=== PATIENT | female | born 1975 | race Caucasian/White ===

== ENCOUNTER 2018-10-30 10:11 | Day surgery (SDC) | payer BC, OTHER ==
[~2018-10-30 10:11] MED LIST: Lactated Ringers 1,000 ML IV SCH; Lidocaine 2% 5 ML SDV ONE; Propofol 200 MG/20 ML SDV ONE; Sodium Chloride 0.9% 10 ML SDV IV PRN; Sodium Chloride 0.9% 10 ML Syringe FLUSH PRN; Sodium Chloride 0.9% 2.5 ML Syringe FLUSH PRN
--- NOTE | 2018-10-30 11:16 | PCM.PREANE ---
Preanesthetic Assessment - Anesthesia/Transfusion/Family Hx Anesthesia History: Prior Anesthesia Without Reaction Other Type of Anesthesia Reaction Comment: Denies any known problem in past, some hx: motion sickness Family History of Anesthesia Reaction: No Transfusion History: No Prior Transfusion(s) Intubation History: Unknown - Review of Systems General: No Symptoms Pulmonary: No Symptoms Cardiovascular: No Symptoms Gastrointestinal: Abdominal Pain, Other (ejection fraction 0%- will get cholecystectomy on ) Neurological: No Symptoms Other: Reports: None - Physical Assessment NPO Status Date: 10/30/18 NPO Status Time: 06:00 O2 Sat by Pulse Oximetry: 97 Respiratory Rate: 18 Vital Signs: Last Vital Signs Temp 37.1 C 10/30/18 11:05 Pulse 92 10/30/18 11:05 Resp 18 10/30/18 11:05 BP 138/95 H 10/30/18 11:05 Pulse Ox 97 10/30/18 11:05 Height: 1.63 m Weight: 112.037 kg ASA Class: 2 Mental Status: Alert & Oriented x3 Airway Class: Mallampati = 2 Dentition: Reports: Normal Dentition Thyro-Mental Finger Breadths: 3 Mouth Opening Finger Breadths: 3 ROM/Head Extension: Full Lungs: Clear to Auscultation, Normal Respiratory Effort Cardiovascular: Regular Rate, Regular Rhythm - Allergies Allergies/Adverse Reactions: Allergies Allergy/AdvReac Type Severity Reaction Status Date / Time povidone-iodine Allergy "throat Verified 10/30/18 07:36 [From Betadine] swells" shellfish derived Allergy Difficulty Verified 10/30/18 07:36 Swallowing soap [From Betadine] Allergy "throat Verified 10/30/18 07:36 swells" - Blood Blood Available: No - Anesthesia Plan Pre-Op Medication Ordered: None - Acknowledgements Anesthesia Type Planned: MAC Pt an Appropriate Candidate for the Planned Anesthesia: Yes Alternatives and Risks of Anesthesia Discussed w Pt/Guardian: Yes Pt/Guardian Understands and Agrees with Anesthesia Plan: Yes PreAnesthesia Questionnaire HEENT History: Reports: Other (See Below) Other HEENT History: wears glasses Cardiovascular History: Reports: None Respiratory History: Reports: None Gastrointestinal History: Reports: Other (See Below) Other Gastrointestinal History: intermittent RUQ pain Genitourinary History: Reports: None [employer] History: Reports: Musculoskeletal History: Reports: Arthritis Other Musculoskeletal History: CMC arthritis Neurological History: Reports: Migraines Psychiatric History: Reports: None Endocrine/Metabolic History: Reports: Obesity/BMI 30+ (BMI 42.4) Hematologic History: Reports: B12 Deficiency Immunologic History: Reports: None Oncologic (Cancer) History: Reports: Basal Cell Carcinoma, Other (See Below) Other Oncologic History: Exicision of skin cancer lesions Dermatologic History: Reports: None - Infectious Disease History Infectious Disease History: Reports: None - Past Surgical History Head Surgeries/Procedures: Reports: None HEENT Surgical History: Reports: Tonsillectomy Respiratory Surgical History: Reports: None GI Surgical History: Reports: Colonoscopy Female Surgical History: Reports: Section (x2), Dilitation & Evacuation, Endometrial Ablation, Hysterectomy Other Female Surgeries/Procedures: x 2, Essure procedure, ' Endometrial Thermal Ablation, hysterectomy Endocrine Surgical History: Reports: None Neurological Surgical History: Reports: None Other Musculoskeletal Surgeries/Procedures:: rt thumb surgery ( right CMC joint fusion ) Oncologic Surgical History: Reports: None Dermatological Surgical History: Reports: Skin Biopsy - SUBSTANCE USE Smoking Status *Q: Never Smoker Recreational Drug Use History: No - HOME MEDS Home Medications: Home Meds Cyanocobalamin (Vitamin B-12) [Cyanocobalamin Injection] 1 injection INJECT ASDIRECTED 05/02/15 [History] ZOLMitriptan [Zolmitriptan] 1 tab PO ASDIRECTED PRN 05/02/15 [History] - CURRENT (IN HOUSE) MEDS Current Meds: Current Medications Lactated Ringer's (Ringers, Lactated) 1,000 mls @ 125 mls/hr IV ASDIRECTED [facility] Last Admin: 10/30/18 11:00 Dose: 125 mls/hr Sodium Chloride (Saline Flush) 10 ml FLUSH ASDIRECTED PRN PRN Reason: Keep Vein Open Sodium Chloride (Saline Flush) 2.5 ml FLUSH ASDIRECTED PRN PRN Reason: Keep Vein Open Sodium Chloride (Saline Flush) 10 ml FLUSH ASDIRECTED PRN PRN Reason: Keep Vein Open Sodium Chloride (Saline Flush) 2.5 ml FLUSH ASDIRECTED PRN PRN Reason: Keep Vein Open Sodium Chloride (Normal Saline) 10 ml IV ASDIRECTED PRN PRN Reason: IV Use Discontinued Medications Lidocaine (Xylocaine-Mpf 2%) Confirm Administered Dose 5 ml .ROUTE .STK-MED ONE Stop: 10/30/18 08:29 Propofol (Diprivan 20 Ml) Confirm Administered Dose 400 mg .ROUTE .STK-MED ONE Stop: 10/30/18 08:29
[2018-10-30] MEDS ORDERED: Propofol 200 MG/20 ML SDV ONE (12:40)
--- NOTE | 2018-10-30 12:58 | PCM.OPNOTE ---
- General Post-Op/Procedure Note Date of Surgery/Procedure: 10/30/18 Operative Procedure(s): Colonoscopy Findings: 1 descending colon polyp, sigmoid colon polyp x 2 Pre Op Diagnosis: Change in bowel habits Post-Op Diagnosis: Sigmoid colon polyp x 2, descending colon polyp Anesthesia Technique: MAC Primary Surgeon: Rita Sy Condition: Good
[2018-10-30 13:10] VITALS: BP 169/90
--- NOTE | 2018-10-30 13:26 | PCM.POSTAN ---
POST ANESTHESIA ASSESSMENT - MENTAL STATUS Mental Status: Alert, Oriented - RESPIRATORY Respiratory Status: Respiratory Rate WNL, Airway Patent, O2 Saturation Stable - CARDIOVASCULAR CV Status: Pulse Rate WNL, Blood Pressure Stable - GASTROINTESTINAL GI Status: No Symptoms - PAIN Pain Score: 0 - POST OP HYDRATION Hydration Status: Adequate & Stable - OBSERVATIONS Free Text/Narrative:: No anesthesia problems, patient skipper drecovery room stage of postoperative care.
--- NOTE | 2018-10-30 19:48 | OR ---
SURGEON: BERNARDA MOORE MD DATE OF PROCEDURE: 10/30/2018 PREOPERATIVE DIAGNOSIS: Change in bowel habits. POSTOPERATIVE DIAGNOSES: 1. Descending colon polyps x1. 2. Sigmoid colon polyps x2. PROCEDURE PERFORMED: Diagnostic colonoscopy with biopsy. ANESTHESIA: MAC. INSTRUMENT USED: Olympus colonoscope. EXTENT OF EXAM: To the cecum. PREPARATION: Good. LIMITATIONS: None. INDICATION FOR EXAMINATION: The patient is a 43-year-old female who presents with changes in her bowel habits. She has never had a colonoscopy. I explained the need for diagnostic colonoscopy. I discussed the procedure, expected perioperative course, and risks including bleeding, infection, or damage to surrounding structures including perforation. The patient verbalized understanding and wishes to proceed. PROCEDURE IN DETAIL: The patient was brought to the endoscopy suite and placed in the left lateral decubitus position. A time-out was completed verifying the patient's name, age, date of , allergies, and procedure to be performed. Monitored anesthesia care was induced and continuous oxygen was provided via nasal cannula throughout the procedure. After adequate sedation was achieved, a digital rectal exam was performed. This exam was within normal limits. A well-lubricated colonoscope was inserted in the rectum and advanced under direct visualization to the level of the cecum. The cecum was identified by both visual and anatomic landmarks. A photograph was taken of the cecal cap; however, due to looping of the scope more proximally due to a very redundant colon, I was unable to retroflex the scope within the cecum. The scope was then straightened out and fully withdrawn while examining the color, texture, anatomy, and integrity of the mucosa from the cecum to the anal canal. The patient had one sessile polyp in the very proximal descending colon. This was removed in piecemeal fashion using a cold biopsy forceps. In the distal sigmoid colon, she had two small sessile polyps as well. These were removed in a similar fashion. The scope was brought into the rectum and retroflexed to allow visualization of the anal canal opening. This appeared normal and a photograph was taken. The scope was then straightened out and fully withdrawn. The cecum to anus time was 19 minutes. The patient tolerated the procedure well and was transferred to the PACU in stable condition. ENDOSCOPIC DIAGNOSES: 1. Descending colon polyps x1. 2. Sigmoid colon polyps x2. RECOMMENDATIONS: Follow up in clinic in 2 weeks. CAROL SIMMONS /[id number]
== END 2018-10-30 13:35 | disposition home or self-care (01) ==
LOC: MW.SDS 10:11
PROVIDERS: ATTEND Surgery
DX: D12.4 Benign neoplasm of descending colon (principal); K63.5 Polyp of colon; K63.89 Other specified diseases of intestine; K82.8 Other specified diseases of gallbladder; E53.8 Deficiency of other specified B group vitamins; D53.9 Nutritional anemia, unspecified; G43.909 Migraine, unspecified, not intractable, without status migrainosus; M18.11 Unilateral primary osteoarthritis of first carpometacarpal joint, right hand; Z88.3 Allergy status to other anti-infective agents; Z91.013 Allergy to seafood; Z91.048 Other nonmedicinal substance allergy status; Z79.899 Other long term (current) drug therapy
CPT/HCPCS: 45380; J2001; J2704; J7120; 88305

== ENCOUNTER 2018-11-02 07:14 | Day surgery (SDC) | payer BC, OTHER ==
[~2018-11-02 07:14] MED LIST changes: -Lidocaine 2% 5 ML SDV ONE; -Propofol 200 MG/20 ML SDV ONE; +ceFAZolin 2 GM in Premix Bag 1 BAG IV ONE
[2018-11-02] MEDS ORDERED: Propofol 200 MG/20 ML SDV ONE (07:15)
[2018-11-02] MEDS ORDERED: fentaNYL 250 MCG/5 ML SDV ONE (07:15)
[2018-11-02] MEDS ORDERED: Midazolam 1 MG/ML 2 ML SDV ONE (07:15)
[2018-11-02] MEDS ORDERED: Ondansetron 4 MG/2 ML SDV ONE (07:16)
[2018-11-02] MEDS ORDERED: Dexamethasone 4 MG/ML 5 ML MDV ONE (07:16)
[2018-11-02] MEDS ORDERED: ceFAZolin/Dextrose,Iso-Osmotic 2 GM/50 ML Duplex Bag IV ONE (07:18)
[2018-11-02] MEDS ORDERED: Neostigmine Methylsulfate 1 MG/ML 5 ML Syringe ONE (07:22)
[2018-11-02] MEDS ORDERED: Rocuronium 100 MG/10 ML Syringe ONE (07:22)
[2018-11-02] MEDS ORDERED: Glycopyrrolate 0.2 MG/ML SDV ONE ×2 (07:22→07:23)
--- NOTE | 2018-11-02 07:32 | PCM.PREANE ---
Preanesthetic Assessment - Anesthesia/Transfusion/Family Hx Anesthesia History: Prior Anesthesia Without Reaction Other Type of Anesthesia Reaction Comment: Denies any known problem in past, some hx: motion sickness Family History of Anesthesia Reaction: No Transfusion History: No Prior Transfusion(s) Intubation History: Unknown - Review of Systems General: No Symptoms Pulmonary: No Symptoms Cardiovascular: No Symptoms Gastrointestinal: No Symptoms Neurological: No Symptoms Other: Reports: None - Physical Assessment Height: 1.63 m Weight: 112.037 kg ASA Class: 2 Mental Status: Alert & Oriented x3 Airway Class: Mallampati = 2 Dentition: Reports: Normal Dentition Thyro-Mental Finger Breadths: 3 Mouth Opening Finger Breadths: 3 ROM/Head Extension: Full Lungs: Clear to Auscultation, Normal Respiratory Effort Cardiovascular: Regular Rate, Regular Rhythm - Allergies Allergies/Adverse Reactions: Allergies Allergy/AdvReac Type Severity Reaction Status Date / Time povidone-iodine Allergy "throat Verified 10/30/18 07:36 [From Betadine] swells" shellfish derived Allergy Difficulty Verified 10/30/18 07:36 Swallowing soap [From Betadine] Allergy "throat Verified 10/30/18 07:36 swells" - Blood Blood Available: No - Anesthesia Plan Pre-Op Medication Ordered: None - Acknowledgements Anesthesia Type Planned: General Anesthesia Pt an Appropriate Candidate for the Planned Anesthesia: Yes Alternatives and Risks of Anesthesia Discussed w Pt/Guardian: Yes Pt/Guardian Understands and Agrees with Anesthesia Plan: Yes PreAnesthesia Questionnaire HEENT History: Reports: Other (See Below) Other HEENT History: wears glasses Cardiovascular History: Reports: None Respiratory History: Reports: None Gastrointestinal History: Reports: Other (See Below) (cholecystitis) Other Gastrointestinal History: intermittent RUQ pain Genitourinary History: Reports: None [employer] History: Reports: Musculoskeletal History: Reports: Arthritis Other Musculoskeletal History: CMC arthritis Neurological History: Reports: Migraines Psychiatric History: Reports: None Endocrine/Metabolic History: Reports: Obesity/BMI 30+ (BMI 42.4) Hematologic History: Reports: B12 Deficiency Immunologic History: Reports: None Oncologic (Cancer) History: Reports: Basal Cell Carcinoma, Other (See Below) Other Oncologic History: Exicision of skin cancer lesions Dermatologic History: Reports: None - Infectious Disease History Infectious Disease History: Reports: None - Past Surgical History Head Surgeries/Procedures: Reports: None HEENT Surgical History: Reports: Tonsillectomy Respiratory Surgical History: Reports: None GI Surgical History: Reports: Colonoscopy Female Surgical History: Reports: Section (x2), Dilitation & Evacuation, Endometrial Ablation, Hysterectomy Other Female Surgeries/Procedures: x 2, Essure procedure, ' Endometrial Thermal Ablation, hysterectomy Endocrine Surgical History: Reports: None Neurological Surgical History: Reports: None Other Musculoskeletal Surgeries/Procedures:: rt thumb surgery ( right CMC joint fusion ) Oncologic Surgical History: Reports: None Dermatological Surgical History: Reports: Skin Biopsy - SUBSTANCE USE Smoking Status *Q: Never Smoker Recreational Drug Use History: No - HOME MEDS Home Medications: Home Meds Cyanocobalamin (Vitamin B-12) [Cyanocobalamin Injection] 1 injection INJECT ASDIRECTED 05/02/15 [History] ZOLMitriptan [Zolmitriptan] 1 tab PO ASDIRECTED PRN 05/02/15 [History] - CURRENT (IN HOUSE) MEDS Current Meds: Current Medications Lactated Ringer's (Ringers, Lactated) 1,000 mls @ 125 mls/hr IV ASDIRECTED KP Sodium Chloride (Saline Flush) 10 ml FLUSH ASDIRECTED PRN PRN Reason: Keep Vein Open Sodium Chloride (Saline Flush) 2.5 ml FLUSH ASDIRECTED PRN PRN Reason: Keep Vein Open Sodium Chloride (Normal Saline) 10 ml IV ASDIRECTED PRN PRN Reason: IV Use Discontinued Medications Cefazolin Sodium/Dextrose (Ancef) Confirm Administered Dose 2 gm IV .STK-MED ONE Stop: 11/02/18 07:19 Dexamethasone (Dexamethasone) Confirm Administered Dose 20 mg .ROUTE .STK-MED ONE Stop: 11/02/18 07:17 Fentanyl (Sublimaze) Confirm Administered Dose 250 mcg .ROUTE .STK-MED ONE Stop: 11/02/18 07:16 Glycopyrrolate (Robinul) Confirm Administered Dose 0.6 mg .ROUTE .STK-MED ONE Stop: 11/02/18 07:23 Glycopyrrolate (Robinul) Confirm Administered Dose 0.2 mg .ROUTE .STK-MED ONE Stop: 11/02/18 07:24 Cefazolin Sodium/Dextrose 2 gm (/ Premix) 50 mls @ 100 mls/hr IV ONETIME ONE Stop: 11/01/18 13:40 Lidocaine HCl (Xylocaine-Mpf 1%) Confirm Administered Dose 5 mls @ as directed .ROUTE .STK-MED ONE Stop: 11/02/18 07:17 Acetaminophen (Ofirmev) Confirm Administered Dose 100 mls @ as directed IV .STK- MED ONE Stop: 11/02/18 07:22 Midazolam HCl (Versed 1 Mg/Ml) Confirm Administered Dose 2 mg .ROUTE .STK-MED ONE Stop: 11/02/18 07:16 Neostigmine Methylsulfate (Neostigmine) Confirm Administered Dose 5 mg .ROUTE .STK-MED ONE Stop: 11/02/18 07:23 Ondansetron HCl (Zofran) Confirm Administered Dose 4 mg .ROUTE .STK-MED ONE Stop: 11/02/18 07:17 Propofol (Diprivan 20 Ml) Confirm Administered Dose 200 mg .ROUTE .STK-MED ONE Stop: 11/02/18 07:16 Rocuronium Mclean (Zemuron) Confirm Administered Dose 100 mg .ROUTE .STK-MED ONE Stop: 11/02/18 07:23 Succinylcholine Chloride (Succinylcholine Chloride) Confirm Administered Dose 200 mg .ROUTE .STK-MED ONE Stop: 11/02/18 07:23
[2018-11-02] MEDS ORDERED: Bupivacaine 0.5% 30 ML SDV ONE (07:33)
[2018-11-02] MEDS ORDERED: Ketorolac 30 MG/ML SDV ONE (09:09)
[2018-11-02] MEDS ORDERED: fentaNYL 100 MCG/2 ML SDV IVPUSH PRN (09:16)
[2018-11-02] MEDS ORDERED: HYDROmorphone 2 MG/ML Syringe ONE (09:43)
[2018-11-02] MEDS ORDERED: Sodium Chloride 0.9% 20 ML ONE (09:43)
[2018-11-02] MEDS ORDERED: fentaNYL 100 MCG/2 ML SDV ONE (10:32)
--- NOTE | 2018-11-02 10:34 | PCM.OPNOTE ---
<Bang Ferguson - Last Filed: 11/02/18 10:30> - General Post-Op/Procedure Note Date of Surgery/Procedure: 11/02/18 Operative Procedure(s): Laparoscopic Cholecystectomy Findings: Pt was noted to have a enlarged Liver secondary to Fatty Liver Disease Pre Op Diagnosis: Biliary Dyskinesia Post-Op Diagnosis: Biliary Dyskinesia Primary Surgeon: Rita Sy Secondary Surgeon: Bang Ferguson Fluid Replacement, Intraop: 1,500 Output, Urine Amount: 500 EBL in mLs: 50 Complications: Small Capsular tear of liver with bleeding well controlled Condition: Good <Rita Sy - Last Filed: 11/02/18 10:35> - General Post-Op/Procedure Note Anesthesia Technique: General ET Tube Output, Urine Amount: 300 Free Text/Narrative:: Intake & Output 11/01/18 11/02/18 11/02/18 22:59 06:59 14:59 Intake Total 1500 Output Total 500 Balance 1000
[2018-11-02] MEDS ORDERED: HYDROmorphone 2 MG/ML SDV IVPUSH PRN (10:38)
[2018-11-02] MEDS ORDERED: Ondansetron 4 MG/2 ML SDV IVPUSH PRN (10:38)
[2018-11-02] MEDS ORDERED: diphenhydrAMINE 50 MG/ML SDV IVPUSH PRN (10:38)
[2018-11-02] MEDS: fentaNYL 100 MCG/2 ML SDV IVPUSH PRN ×2 (13:26→14:12)
[2018-11-02] MEDS: Acetaminophen/HYDROcodone 325-5 MG Tab PO PRN ×2 (13:30→20:53)
--- NOTE | 2018-11-02 15:18 | OR ---
SURGEON: RITA MOORE MD DATE OF PROCEDURE: 11/02/2018 PREOPERATIVE DIAGNOSIS: Biliary dyskinesia. POSTOPERATIVE DIAGNOSIS: Biliary dyskinesia. PROCEDURE PERFORMED: Laparoscopic cholecystectomy. PRIMARY SURGEON: Rita Moore MD. CONTACT CENTER DIRECTOR: physical therapist assistant: Dr. Bang Ferguson, Encoding Clerk. FLUIDS: 1500 mL of crystalloid. ESTIMATED BLOOD LOSS: 50 mL. URINE OUTPUT: 300 mL. FINDINGS: Fatty liver. Distended gallbladder with no signs of acute inflammation. COMPLICATIONS: Capsular tear of the liver. INDICATIONS: The patient is a 43-year-old female, who presented to the office with biliary dyskinesia. I explained the need for a cholecystectomy. I explained both the laparoscopic and open approaches. I will attempt it laparoscopically, but should I be unable to perform it safely, I will convert to open. We discussed the expected perioperative course as well as the risks including bleeding, infection, or damage to surrounding structures. The patient verbalized understanding and wishes to proceed. PROCEDURE IN DETAIL: The patient was brought into the OR and placed on the OR table in supine position. A time-out was completed verifying the patient's name, age, date of , allergies, and procedure to be performed. General endotracheal anesthesia was induced. The left arm was tucked to the patient's side and a Rivera catheter placed. The abdomen was prepped and draped in usual sterile fashion. I anesthetized the area over the supraumbilical midline with 0.5% Marcaine plain. An 11 blade was used to make a 2 cm incision over this area. Cautery was used to dissect down to the subcutaneous fat. S retractors were used to bluntly dissect down to the level of the fascia. The fascia was elevated with Jeane's and incised sharply with the Metzenbaum scissors. The peritoneum was identified and elevated with hemostats. It was sharply incised with the Metzenbaum scissors. Entry into the abdomen was palpated. A 12 mm Manju trocar was inserted into the abdomen and the abdomen insufflated. A 5 mm 30 degree scope was inserted and I inspected the area underneath my initial trocar placement. No damage to surrounding structures was noted. The patient was placed into reverse Trendelenburg position and airplaned slightly to the left. 5 mm trocars were placed in the following locations under direct visualization; one in the epigastric area, one in the right flank, and one 3 fingerbreadths below the right subcostal margin in the midclavicular line. The liver appeared enlarged and had fatty infiltration. The dome of the gallbladder was grasped and elevated cranially. When doing this, a tear was made along the liver involving a small amount of the parenchyma right next to the falciform ligament. Electrocautery was used to achieve hemostasis. The wound was then packed with Surgicel. Once hemostasis was achieved, I continued the case. The gallbladder was gently elevated and mobilized medially to decrease the amount of tension on the capsular tear. I then identified the infundibulum. It was grasped with an atraumatic grasper. The gallbladder itself appeared distended and slightly intrahepatic. I started my dissection along the medial and lateral edges of the body of the gallbladder to mobilize it and allow better visualization of my infundibulum. This was performed using hook cautery. Once I had mobilized medially and laterally, I was then able to manipulate the infundibulum more easily to allow for safer dissection. Using a combination of blunt dissection and hook cautery, I was able to take down the peritoneal attachments around the infundibulum. I cleared away the cystic duct and artery and achieved my critical view. A photograph was taken. I then doubly clipped and ligated my cystic duct and artery. Electrocautery was used to remove the gallbladder from its attachments to the gallbladder fossa. The gallbladder was then placed in an EndoCatch bag and removed through the supraumbilical port site. The 12 mm Manju trocar was placed back in the abdomen. I inspected my operative field. It appeared to be hemostatic. I turned my attention back to the liver tear. There was a small amount of oozing, so endoscopic Avitene and another piece of Surgicel was placed on top. I monitored the area closely and no further bleeding was noted. The Surgicel remained dry. A photograph of this area was taken. I suctioned any remaining blood out of the abdomen. Once I had ensured that there was hemostasis, I removed my 5 mm trocars under direct visualization and allowed the abdomen to desufflate. The 12 mm Manju trocar was removed as well. I then closed the fascia at the supraumbilical port site with interrupted 0 Vicryl sutures. The subcutaneous fat layer was closed with interrupted 3-0 Vicryl sutures. The skin was closed with a running 4-0 Monocryl stitch. The 5 mm trocar sites were closed with interrupted 4-0 Monocryl sutures. Steri-Strips and sterile dressings were applied. The patient tolerated the procedure well and was transferred to the PACU in stable condition. CAROL SIMMONS /[id number]
[2018-11-02] MEDS ORDERED: HYDROmorphone 1 MG/ML Syringe IVPUSH PRN (15:47)
[2018-11-03] MEDS: Acetaminophen/HYDROcodone 325-5 MG Tab PO PRN ×2 (02:15→08:20)
[2018-11-03 08:09] VITALS: BP 134/86
[2018-11-03] MEDS ORDERED: Bisacodyl 5 MG Tab PO SCH (09:00)
--- NOTE | 2018-11-03 09:33 | PCM.SURGPN ---
- General Info Date of Service: 11/03/18 Date of Surgery/Procedure: 11/02/18 POD#: 1 Functional Status: Reports: Pain Controlled, Tolerating Diet, Ambulating, Urinating, Other (nauseated) - Review of Systems General: Reports: No Symptoms HEENT: Reports: No Symptoms Pulmonary: Reports: No Symptoms Cardiovascular: Reports: No Symptoms Gastrointestinal: Reports: Nausea - Patient Data Vitals - Most Recent: Last Vital Signs Temp 36.7 C 11/03/18 08:00 Pulse 82 11/03/18 08:00 Resp 17 11/03/18 08:00 BP 134/86 11/03/18 08:00 Pulse Ox 95 11/03/18 08:00 Weight - Most Recent: 112.037 kg I&O - Last 24 Hours: Intake & Output 11/02/18 11/03/18 11/03/18 22:59 06:59 14:59 Intake Total 100 1350 Output Total 300 1450 Balance -200 -100 Lab Results Last 24 Hrs: Laboratory Results - last 24 hr 11/03/18 11/03/18 Range/Units 08:10 08:10 Hgb 13.9 (12.0-16.0) g/dL Sodium 138 (136-145) mmol/L Potassium 4.2 (3.5-5.1) mmol/L Chloride 101 (98-107) mmol/L Carbon Dioxide 28.2 (21.0-32.0) mmol/L BUN 13 (7.0-18.0) mg/dL Creatinine 1.0 (0.6-1.0) mg/dL Est Cr Clr Drug Dosing 61.35 mL/min Estimated GFR (MDRD) 60.0 ml/min Glucose 105 (74-106) mg/dL Calcium 9.6 (8.5-10.1) mg/dL Total Bilirubin 0.4 (0.2-1.0) mg/dL AST 33 (15-37) IU/L ALT 44 (14-63) IU/L Alkaline Phosphatase 109 (46-116) U/L Total Protein 7.3 (6.4-8.2) g/dL Albumin 3.6 (3.4-5.0) g/dL Globulin 3.7 (2.6-4.0) g/dL Albumin/Globulin Ratio 1.0 (0.9-1.6) Med Orders - Current: Current Medications Hydrocodone Bitart/Acetaminophen ([place] 325-5 Mg) 2 tab PO Q4H PRN PRN Reason: Pain (moderate 4-6) Last Admin: 11/03/18 08:20 Dose: 2 tab Bisacodyl (Dulcolax) 5 mg PO DAILY KP Last Admin: 11/03/18 08:20 Dose: 5 mg Diphenhydramine HCl (Benadryl) 25 mg IVPUSH Q4H PRN PRN Reason: Itching Fentanyl (Sublimaze) 50 - 100 mcg IVPUSH Q5M PRN PRN Reason: Pain (severe 7-10) Last Admin: 11/02/18 14:12 Dose: 50 mcg Hydromorphone HCl (Dilaudid) 0.5 mg IVPUSH Q1H PRN PRN Reason: Pain (severe 7-10) Last Admin: 11/02/18 16:02 Dose: 0.5 mg Ondansetron HCl (Zofran) 4 mg IVPUSH Q6H PRN PRN Reason: Nausea/Vomiting Last Admin: 11/02/18 17:26 Dose: 4 mg Sodium Chloride (Saline Flush) 10 ml FLUSH ASDIRECTED PRN PRN Reason: Keep Vein Open Sodium Chloride (Saline Flush) 2.5 ml FLUSH ASDIRECTED PRN PRN Reason: Keep Vein Open Sodium Chloride (Normal Saline) 10 ml IV ASDIRECTED PRN PRN Reason: IV Use Discontinued Medications Bupivacaine HCl (Marcaine 0.5%) Confirm Administered Dose 30 ml .ROUTE .STK-MED ONE Stop: 11/02/18 07:34 Cefazolin Sodium/Dextrose (Ancef) Confirm Administered Dose 2 gm IV .STK-MED ONE Stop: 11/02/18 07:19 Dexamethasone (Dexamethasone) Confirm Administered Dose 20 mg .ROUTE .STK-MED ONE Stop: 11/02/18 07:17 Fentanyl (Sublimaze) Confirm Administered Dose 250 mcg .ROUTE .STK-MED ONE Stop: 11/02/18 07:16 Fentanyl (Sublimaze) 50 mcg IVPUSH Q5M PRN PRN Reason: Pain (severe 7-10) Stop: 11/02/18 12:00 Fentanyl (Sublimaze) Confirm Administered Dose 100 mcg .ROUTE .STK-MED ONE Stop: 11/02/18 10:33 Glycopyrrolate (Robinul) Confirm Administered Dose 0.6 mg .ROUTE .STK-MED ONE Stop: 11/02/18 07:23 Glycopyrrolate (Robinul) Confirm Administered Dose 0.2 mg .ROUTE .STK-MED ONE Stop: 11/02/18 07:24 Hydromorphone HCl (Dilaudid) Confirm Administered Dose 2 mg .ROUTE .STK-MED ONE Stop: 11/02/18 09:44 Hydromorphone HCl (Dilaudid) 0.5 mg IVPUSH Q1H PRN PRN Reason: Pain (severe 7-10) Cefazolin Sodium/Dextrose 2 gm (/ Premix) 50 mls @ 100 mls/hr IV ONETIME ONE Stop: 11/01/18 13:40 Last Admin: 11/02/18 17:38 Dose: Not Given Lactated Ringer's (Ringers, Lactated) 1,000 mls @ 125 mls/hr IV ASDIRECTED [facility] Last Admin: 11/02/18 07:45 Dose: 125 mls/hr Lidocaine HCl (Xylocaine-Mpf 1%) Confirm Administered Dose 5 mls @ as directed .ROUTE .STK-MED ONE Stop: 11/02/18 07:17 Acetaminophen (Ofirmev) Confirm Administered Dose 100 mls @ as directed IV .STK- MED ONE Stop: 11/02/18 07:22 Sodium Chloride (Normal Saline) Confirm Administered Dose 20 mls @ as directed .ROUTE .STK-MED ONE Stop: 11/02/18 09:44 Ketorolac Tromethamine (Toradol) Confirm Administered Dose 30 mg .ROUTE .STK- MED ONE Stop: 11/02/18 09:10 Midazolam HCl (Versed 1 Mg/Ml) Confirm Administered Dose 2 mg .ROUTE .STK-MED ONE Stop: 11/02/18 07:16 Neostigmine Methylsulfate (Neostigmine) Confirm Administered Dose 5 mg .ROUTE .STK-MED ONE Stop: 11/02/18 07:23 Ondansetron HCl (Zofran) Confirm Administered Dose 4 mg .ROUTE .STK-MED ONE Stop: 11/02/18 07:17 Propofol (Diprivan 20 Ml) Confirm Administered Dose 200 mg .ROUTE .STK-MED ONE Stop: 11/02/18 07:16 Rocuronium [place] (Zemuron) Confirm Administered Dose 100 mg .ROUTE .STK-MED ONE Stop: 11/02/18 07:23 Succinylcholine Chloride (Succinylcholine Chloride) Confirm Administered Dose 200 mg .ROUTE .STK-MED ONE Stop: 11/02/18 07:23 - Exam Wound/Incisions: Healing Well, Dressing Dry and Intact General: Alert, Oriented, Cooperative Lungs: Normal Respiratory Effort Cardiovascular: Regular Rate GI/Abdominal Exam: Soft, Non-Tender, No Distention, No Mass - Problem List & Annotations (1) Biliary dyskinesia SNOMED Code(s): 543918772 Code(s): K82.8 - OTHER SPECIFIED DISEASES OF GALLBLADDER Status: Acute Current Visit: Yes - Problem List Review Problem List Initiated/Reviewed/Updated: Yes - My Orders Last 24 Hours: Active Orders 24 hr Category Date Time Status Intake and Output [RC] QSHIFT Care 11/02/18 10:39 Active Notify Provider Vital Signs [RC] PRN Care 11/02/18 10:39 Active Oxygen Therapy [RC] PRN Care 11/02/18 10:38 Active RT Incentive Spirometry [RC] Q1HWA Care 11/02/18 10:38 Active Ready for Discharge [RC] PER UNIT ROUTINE Care 11/03/18 09:27 Ordered Up ad [place] [RC] ASDIRECTED Care 11/02/18 10:38 Active Vital Signs [RC] PER UNIT ROUTINE Care 11/02/18 10:38 Active Acetaminophen/HYDROcodone [Vandemere 325-5 MG] Med 11/02/18 10:38 Active 2 tab PO Q4H PRN Bisacodyl [Dulcolax] Med 11/03/18 09:00 Active 5 mg PO DAILY HYDROmorphone [Dilaudid] Med 11/02/18 15:47 Active 0.5 mg IVPUSH Q1H PRN Ondansetron [Zofran] Med 11/02/18 10:38 Active 4 mg IVPUSH Q6H PRN diphenhydrAMINE [Benadryl] Med 11/02/18 10:38 Active 25 mg IVPUSH Q4H PRN fentaNYL [Sublimaze] Med 11/02/18 13:14 Active 50 - 100 mcg IVPUSH Q5M PRN Medication Orders Hydrocodone Bitart/Acetaminophen ([place] 325-5 Mg) 2 tab PO Q4H PRN PRN Reason: Pain (moderate 4-6) Last Admin: 11/03/18 08:20 Dose: 2 tab Admin: 11/03/18 02:15 Dose: 2 tab Admin: 11/02/18 20:53 Dose: 2 tab Admin: 11/02/18 13:30 Dose: 2 tab Bisacodyl (Dulcolax) 5 mg PO DAILY KP Last Admin: 11/03/18 08:20 Dose: 5 mg Diphenhydramine HCl (Benadryl) 25 mg IVPUSH Q4H PRN PRN Reason: Itching Fentanyl (Sublimaze) 50 - 100 mcg IVPUSH Q5M PRN PRN Reason: Pain (severe 7-10) Last Admin: 11/02/18 14:12 Dose: 50 mcg Admin: 11/02/18 13:26 Dose: 50 mcg Hydromorphone HCl (Dilaudid) 0.5 mg IVPUSH Q1H PRN PRN Reason: Pain (severe 7-10) Last Admin: 11/02/18 16:02 Dose: 0.5 mg Ondansetron HCl (Zofran) 4 mg IVPUSH Q6H PRN PRN Reason: Nausea/Vomiting Last Admin: 11/02/18 17:26 Dose: 4 mg Sodium Chloride (Saline Flush) 10 ml FLUSH ASDIRECTED PRN PRN Reason: Keep Vein Open Sodium Chloride (Saline Flush) 2.5 ml FLUSH ASDIRECTED PRN PRN Reason: Keep Vein Open Sodium Chloride (Normal Saline) 10 ml IV ASDIRECTED PRN PRN Reason: IV Use - Plan Plan (Free Text/Narrative):: The patient was stable overnight. Hemoglobin is within normal level and her CMP is normal. As long as she can eat a small meal this morning without vomiting or severe nausea she can be discharged home.
--- NOTE | 2018-11-03 11:45 | PCM48HPAN ---
Post Anesthesia Note - EVALUATION WITHIN 48HRS OF ANESTHETIC Vital Signs in Normal Range: Yes Patient Participated in Evaluation: No (RN states patient left about 11:00 without any complaints or problems) Respiratory Function Stable: Yes Airway Patent: Yes Cardiovascular Function Stable: Yes Hydration Status Stable: Yes Pain Control Satisfactory: Yes Nausea and Vomiting Control Satisfactory: Yes Mental Status Recovered: Yes Resp Rate: 17
== END 2018-11-03 11:00 | disposition home or self-care (01) ==
LOC: MW.SDS 07:14 → MW.MS 11:18 → MW.SDS 11-03 11:00
PROVIDERS: ATTEND Surgery
DX: K81.1 Chronic cholecystitis (principal); G43.909 Migraine, unspecified, not intractable, without status migrainosus; E53.8 Deficiency of other specified B group vitamins; E66.9 Obesity, unspecified; Z68.41 Body mass index [BMI] 40.0-44.9, adult; Z79.899 Other long term (current) drug therapy; Z91.013 Allergy to seafood; Z91.048 Other nonmedicinal substance allergy status
CPT/HCPCS: 36415; 47562; 80053; 85018; 88304; A9270; J0131; J0330; J0690; J1100; J1170; J2001; J2250; J2405; J2704; J3010; J3490; J7120; 00790; J1885

== ENCOUNTER 2019-03-20 09:43 | Day surgery (SDC) | payer BC ==
[~2019-03-20 09:43] MED LIST changes: -ceFAZolin 2 GM in Premix Bag 1 BAG IV ONE
--- NOTE | 2019-03-20 10:03 | PCM.PREANE ---
Preanesthetic Assessment - Anesthesia/Transfusion/Family Hx Anesthesia History: Prior Anesthesia Without Reaction Other Type of Anesthesia Reaction Comment: Denies any known problem in past, some hx: motion sickness Family History of Anesthesia Reaction: No Transfusion History: No Prior Transfusion(s) Intubation History: Unknown - Review of Systems General: No Symptoms Pulmonary: No Symptoms Cardiovascular: No Symptoms Gastrointestinal: Abdominal Pain, Other (s/o lap.peggy about a month ago) Neurological: No Symptoms Other: Reports: None - Physical Assessment Height: 5 ft 4 in Weight: 112.037 kg ASA Class: 2 Mental Status: Alert & Oriented x3 Airway Class: Mallampati = 2 Dentition: Reports: Normal Dentition Thyro-Mental Finger Breadths: 3 Mouth Opening Finger Breadths: 3 ROM/Head Extension: Full Lungs: Clear to Auscultation, Normal Respiratory Effort Cardiovascular: Regular Rate, Regular Rhythm - Allergies Allergies/Adverse Reactions: Allergies Allergy/AdvReac Type Severity Reaction Status Date / Time povidone-iodine Allergy "throat Verified 03/15/19 13:07 [From Betadine] swells" shellfish derived Allergy Difficulty Verified 03/15/19 13:07 Swallowing soap [From Betadine] Allergy "throat Verified 03/15/19 13:07 swells" - Blood Blood Available: No - Anesthesia Plan Pre-Op Medication Ordered: None - Acknowledgements Anesthesia Type Planned: MAC Pt an Appropriate Candidate for the Planned Anesthesia: Yes Alternatives and Risks of Anesthesia Discussed w Pt/Guardian: Yes Pt/Guardian Understands and Agrees with Anesthesia Plan: Yes PreAnesthesia Questionnaire HEENT History: Reports: Other (See Below) Other HEENT History: wears reading glasses Cardiovascular History: Reports: None Respiratory History: Reports: None Gastrointestinal History: Reports: Colon Polyp, Other (See Below) Other Gastrointestinal History: intermittent RUQ pain Genitourinary History: Reports: None 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: Musculoskeletal History: Reports: Arthritis Other Musculoskeletal History: CMC arthritis Neurological History: Reports: Migraines Psychiatric History: Reports: None Endocrine/Metabolic History: Reports: Obesity/BMI 30+ Hematologic History: Reports: B12 Deficiency Immunologic History: Reports: None Oncologic (Cancer) History: Reports: Basal Cell Carcinoma, Other (See Below) Other Oncologic History: Exicision of skin cancer lesions from back Dermatologic History: Reports: None - Infectious Disease History Infectious Disease History: Reports: None - Past Surgical History Head Surgeries/Procedures: Reports: None HEENT Surgical History: Reports: Tonsillectomy Cardiovascular Surgical History: Reports: None Respiratory Surgical History: Reports: None GI Surgical History: Reports: Cholecystectomy, Colonoscopy Female Surgical History: Reports: Section, Dilitation & Evacuation, Endometrial Ablation, Hysterectomy Other Female Surgeries/Procedures: x 2, Essure procedure, ' Endometrial Thermal Ablation, hysterectomy Endocrine Surgical History: Reports: None Neurological Surgical History: Reports: None Other Musculoskeletal Surgeries/Procedures:: rt thumb surgery ( right CMC joint fusion ) Oncologic Surgical History: Reports: None Dermatological Surgical History: Reports: Skin Biopsy - SUBSTANCE USE Smoking Status *Q: Never Smoker Recreational Drug Use History: No - HOME MEDS Home Medications: Home Meds Cyanocobalamin (Vitamin B-12) [Cyanocobalamin Injection] 1 injection INJECT ASDIRECTED 05/02/15 [History] ZOLMitriptan [Zolmitriptan] 1 tab PO ASDIRECTED PRN 05/02/15 [History] Pantoprazole Sodium 40 mg PO DAILY 03/15/19 [History] - CURRENT (IN HOUSE) MEDS Current Meds: Current Medications Lactated Ringer's (Ringers, Lactated) 1,000 mls @ 125 mls/hr IV ASDIRECTED KP Sodium Chloride (Saline Flush) 10 ml FLUSH ASDIRECTED PRN PRN Reason: Keep Vein Open Sodium Chloride (Saline Flush) 2.5 ml FLUSH ASDIRECTED PRN PRN Reason: Keep Vein Open Sodium Chloride (Normal Saline) 10 ml IV ASDIRECTED PRN PRN Reason: IV Use
[2019-03-20] MEDS ORDERED: Lidocaine 2% 5 ML SDV ONE (10:29)
[2019-03-20] MEDS ORDERED: Propofol 200 MG/20 ML SDV ONE (10:29)
--- NOTE | 2019-03-20 13:38 | PCM.OPNOTE ---
- General Post-Op/Procedure Note Date of Surgery/Procedure: 03/20/19 Operative Procedure(s): Diagnostic EGD with biopsy Findings: Normal EGD Pre Op Diagnosis: RUQ pain Post-Op Diagnosis: same Anesthesia Technique: BEATRIZ Primary Surgeon: Rita Sy Condition: Good Free Text/Narrative:: Intake & Output 03/19/19 03/20/19 03/20/19 22:59 06:59 14:59 Intake Total 900 Balance 900
--- NOTE | 2019-03-20 13:44 | PCM.POSTAN ---
POST ANESTHESIA ASSESSMENT - MENTAL STATUS Mental Status: Alert, Oriented - VITAL SIGNS Vital Signs: Last Vital Signs Temp 37.3 C 03/20/19 10:25 Pulse 82 03/20/19 13:31 Resp 18 03/20/19 13:31 BP 139/90 03/20/19 13:31 Pulse Ox 96 03/20/19 13:31 - RESPIRATORY Respiratory Status: Respiratory Rate WNL, Airway Patent, O2 Saturation Stable - CARDIOVASCULAR CV Status: Pulse Rate WNL, Blood Pressure Stable - GASTROINTESTINAL GI Status: No Symptoms - PAIN Pain Score: 0 - POST OP HYDRATION Hydration Status: Adequate & Stable - OBSERVATIONS Free Text/Narrative:: no anesthesia problems
--- NOTE | 2019-03-20 13:50 | PCM48HPAN ---
Post Anesthesia Note - EVALUATION WITHIN 48HRS OF ANESTHETIC Vital Signs in Normal Range: Yes Patient Participated in Evaluation: Yes Respiratory Function Stable: Yes Airway Patent: Yes Cardiovascular Function Stable: Yes Hydration Status Stable: Yes Pain Control Satisfactory: Yes Nausea and Vomiting Control Satisfactory: Yes Mental Status Recovered: Yes Vital Signs: Last Vital Signs Temp 37.3 C 03/20/19 10:25 Pulse 82 03/20/19 13:31 Resp 18 03/20/19 13:31 BP 139/90 03/20/19 13:31 Pulse Ox 96 03/20/19 13:31 - COMMENTS/OBSERVATIONS Free Text/Narrative:: no anesthesia problems
[2019-03-20 14:04] VITALS: BP 147/97; PULSE 72
--- NOTE | 2019-03-20 19:18 | OR ---
SURGEON: RITA SY MD DATE OF PROCEDURE: 03/20/2019 PREOPERATIVE DIAGNOSIS: Right upper quadrant pain. POSTOPERATIVE DIAGNOSIS: Right upper quadrant pain. PROCEDURE PERFORMED: Diagnostic esophagogastroduodenoscopy with biopsy. PRIMARY SURGEON: Dr. Rita Sy. ANESTHESIA: MAC. INSTRUMENT USED: Olympus endoscope. EXTENT OF EXAM: To the second portion of duodenum. PREPARATION: Good. LIMITATIONS: None. INDICATION FOR EXAMINATION: Patient is a 44-year-old female who developed right upper quadrant pain one month after having a laparoscopic cholecystectomy for biliary dyskinesia. She has been on pantoprazole, but continues to have intermittent symptoms. The decision was made to proceed with diagnostic EGD. I explained the procedure, expected perioperative course, and risks including bleeding, infection, or damage to surrounding structures including perforation. The patient verbalized understanding and wishes to proceed. PROCEDURE IN DETAIL: The patient was brought to the endoscopy suite and placed in a beach chair position. A time-out was completed verifying the patient's name, age, date of , allergies, and procedure to be performed. A bite block was placed in the patient's mouth. Monitored anesthesia care was induced and continuous oxygen was provided via nasal cannula throughout the procedure. After adequate sedation was achieved, a well-lubricated endoscope was placed in the patient's mouth and advanced under direct visualization to the level of the second portion of duodenum. This appeared normal and a photograph was taken. The scope was then fully withdrawn while examining the color, texture, anatomy, and integrity of the mucosa of the upper GI tract. The duodenum appeared normal. The scope was brought into the stomach. A photograph was taken of the pylorus and the GE junction. Both appeared anatomically normal. I saw no evidence of any gross ulceration or inflammation of the gastric lining. The biopsies were taken of the gastric antrum, body, and fundus, and sent for histologic review and H. pylori testing. The patient did have a few scattered hyperplastic-appearing polyps in the body of the stomach. One of these was biopsied and sent to Pathology labeled as gastric polyp. The scope was then brought into the distal esophagus and a photograph taken of the Z-line. This appeared normal. A biopsy was taken of the esophageal mucosa 1 cm above the Z-line and sent to pathology. The remainder of the esophageal mucosa appeared normal. The scope was then removed and the procedure terminated. The patient tolerated the procedure well and was taken to PACU in stable condition. ENDOSCOPIC DIAGNOSIS: Hyperplastic gastric polyps. RECOMMENDATIONS: Followup in clinic in 2 weeks. CAROL SIMMONS /[id number]
== END 2019-03-20 14:00 | disposition home or self-care (01) ==
LOC: MW.SDS 09:43
PROVIDERS: ATTEND Surgery
DX: K29.50 Unspecified chronic gastritis without bleeding (principal); K31.7 Polyp of stomach and duodenum; K20.9 Esophagitis, unspecified; M19.049 Primary osteoarthritis, unspecified hand; G43.909 Migraine, unspecified, not intractable, without status migrainosus; M18.11 Unilateral primary osteoarthritis of first carpometacarpal joint, right hand; E66.9 Obesity, unspecified; Z88.8 Allergy status to other drugs, medicaments and biological substances; Z91.013 Allergy to seafood; Z79.899 Other long term (current) drug therapy
CPT/HCPCS: 43239; J2001; J2704; J7120; 88305; 88312

== ENCOUNTER 2023-09-06 07:50 | Day surgery (SDC) | payer BC ==
[~2023-09-06 07:50] MED LIST changes: +Albuterol 0.083% 2.5 MG/3 ML Neb Soln NEB PRN; +HYDROmorphone 1 MG/ML Syringe IVPUSH PRN; -Lactated Ringers 1,000 ML IV SCH; +Metoclopramide 10 MG/2 ML SDV IVPUSH PRN; +Morphine 2 MG/ML SYRINGE IVPUSH PRN; +Naloxone 0.4 MG/ML SDV IVPUSH PRN; +Ondansetron 4 MG/2 ML SDV IVPUSH PRN; -Sodium Chloride 0.9% 10 ML SDV IV PRN; +Sodium Chloride 0.9% 20 ML SDV IV PRN; +droPERidol 5 MG/2 ML SDV IVPUSH PRN; +fentaNYL 50 MCG/ML SDV IVPUSH PRN
[2023-09-06] MEDS: Lactated Ringers 1,000 ML IV SCH (08:42)
[2023-09-06] MEDS ORDERED: propofoL 50 ML ONE (13:09)
[2023-09-06] MEDS ORDERED: Lidocaine 1% 20 ML MDV ONE (13:18)
[2023-09-06] MEDS ORDERED: Bupivacaine 0.5% 30 ML SDV ONE (13:18)
[2023-09-06] MEDS ORDERED: Propofol 200 MG/20 ML SDV ONE (13:43)
[2023-09-06 14:40] VITALS: BP 139/71; PULSE 56
== END 2023-09-06 14:50 | disposition home or self-care (01) ==
LOC: MW.SDS 07:50
PROVIDERS: ATTEND Surgery
DX: Z12.11 Encounter for screening for malignant neoplasm of colon (principal); D12.5 Benign neoplasm of sigmoid colon; L82.0 Inflamed seborrheic keratosis; D53.9 Nutritional anemia, unspecified; M19.049 Primary osteoarthritis, unspecified hand; G43.909 Migraine, unspecified, not intractable, without status migrainosus; M18.11 Unilateral primary osteoarthritis of first carpometacarpal joint, right hand; M65.311 Trigger thumb, right thumb; Z79.899 Other long term (current) drug therapy; Z91.041 Radiographic dye allergy status; Z86.010 Personal history of colon polyps; Z91.013 Allergy to seafood
CPT/HCPCS: 11402; 45380; J0665; J2704; J7120; 00811; J3490